=== PATIENT | female | born 1960 | race Hispanic/Latino ===

== ENCOUNTER 2024-07-09 12:50 | Emergency (ER) | payer BC ==
[~2024-07-09] VITALS: Ht 182.9 cm; Wt 149.7 kg
--- NOTE | 2024-07-09 13:26 | ERN ---
ED Note History of Present Illness Stated Complaint: CP,SOB Chief Complaint: Chest Wall Pain Time Seen by MD: 13:16 Dictation: 64-year-old female with a history of DM, asthma, sleep apnea presents to the ED for evaluation of chest pain onset this morning. Patient reports shortness a breath onset 1 day ago, but denies any other associated symptoms at this time. Patient reports she usually uses 2 L of oxygen at night as needed but states she was using 5 L at home today. Patient also mentioned she had an echo performed by Dr. Jacobsen, news agent a few weeks ago. Patient is taking beta blockers but states she did not take any today since she noticed her heart rate was low. Allergies: Coded Allergies: NSAIDS (Non-Steroidal Anti-Inflamma (Unverified Allergy, Unknown, 07/09/24) aspirin (Unverified Allergy, Unknown, 07/09/24) hydromorphone (Unverified Allergy, Unknown, 07/09/24) ketorolac (Unverified Allergy, Unknown, 07/09/24) Past Medical History Past Medical History: Diabetes-Type II, Hypertension Additional Past Medical Hx: CKD Surgical History: Unknown Review of System Dictation Constitutional: Negative for fever,chills, and weight loss Eyes: Negative for injury, pain,redness, and discharge ENT: Negative for injury,pain or swelling Cardiovascular: Positive for chest pain, negative for palpitations, and edema Respiratory: Positive for shortness of breath, negative for cough, and wheezing, Abdomen/GI: Negative for abdominal pain, nausea, vomiting, diarrhea, and constipation Back: Negative for injury and pain : Negative for injury, bleeding and discharge MS/Extremity: Negative for injury and deformity Skin: Negative for rash, and discoloration Neuro: Negative for headache, weakness, numbness, tingling, and seizure Psych: Negative for suicide ideation, homicidal ideation, and hallucinations Initial Vital Sign VS Vital Signs Date Time Temp Pulse Resp B/P (MAP) Pulse Ox O2 Delivery O2 Flow Rate FiO2 07/09/24 12:57 97.7 48 24 138/104 100 Room Air 0 07/09/24 13:18 21 Physical Exam Dictation General: awake, alert, patient appears ill, diaphoretic Head/Face: Normocephalic, atraumatic Eyes: PERRL, EOMI, vision at baseline ENT: oral cavity clear, TMs clear, no signs of infection Neck: Trachea midline, supple, no nuchal rigidity Cardiovascular: Tachycardic, irregular rhythm No MRGs, no JVD Respiratory: CTAB, no respiratory distress, No rales or wheezes Abdomen: Soft, non-tender, non-distended, normal bowel sounds, no guarding or rebound. Skin: Warm, dry, normal turgor, no rash MS/Extremity: Pulses equal, no cyanosis, neurovascular intact, FROM Neuro: COAx4, GCS 15, strength 5/5, CN 2-12 intact, normal cerebellar exam, normal gait, Psych: Normal behavior, mood, and affect normal Results (Laboratory/Radiology) Laboratory/Radiology Labs Reviewed?: Yes EKG Comment: EKG 07/09/2024 time 1:10 p.m. ventricular rate 108, atrial fibrillation, ventricular premature complex, incomplete left bundle branch block, LVH with secondary repolarization abnormality. No STEMI EKG 07/09/2024 time 1:42 p.m. ventricular rate 128, atrial fibrillation, ventricular tachycardia, nonsustained, incomplete left bundle branch block, LVH with secondary repolarization abnormality. No STEMI ED Course ED Course HEART Score Response (Comments) Value History: Low suspicion (0) 0 EKG: Repolarization changes 1 Age: 45-65yrs (+1) 1 Risk Factors: 1-2 risk factors (+1) 1 Initial Troponin: Normal limit (0) 0 HEART Score Risk: Low Risk for MACE (1-3) Total 3 Medical Decision Making MDM MDM: Differential diagnosis: New onset AFib with RVR, unsustained VT 1336- consult 1345- Dr. Yang, Cardiology consult 1410- Dr. Fernando consult accepts patient for admission Rationale: Tests considered and ordered secondary to shared decision making include: labs, ECG and radiology Risk of complication and/or morbidity or mortality of patient management: None Medications-Per medication reconciliation Need for hospitalization: Patient does meet criteria for hospitalization. Need for emergency major/minor surgery: No There are no social concerns with this patient. Patient's prior external medical records from other ER visits were reviewed by me as indicated. Prior testing and results from previous visits were reviewed. Prior tests were taken into account with medical decision making and resource utilization, independent historian/historians were used to obtain complete medical history. I independently interpreted the test that were performed, results were reviewed by me and considered findings on radiology if ordered. Medical management and examination interpretation discussions were had by me with other qualified healthcare professionals as indicated for the patient's care. 1338- Patient is stating she wants to leave 1604-after being admitted, patient was seen by hospitalist and Dr. Gaona at bedside. Patient was upset about admission due to her insurance not being accepted here, hospitalist team offered to organize transfer to [facility] where patient's insurance is accepted. Patient decided to leave AMA. Critical Care Note Critical Time: other (Total critical care time was 33 minutes. Excluding time for procedures. Management of critically ill patient with concern for acute decompensation. Management included interpretation of laboratory values and imaging, hemodynamics, time for consultation with consultants and admitting physician.) DX & DISP Disposition: Inpatient Decision to Admit Date: Jul 09, 2024 Decision to Admit Time: 14:14 Departure Impression: Primary Impression: Atrial fibrillation with RVR Additional Impression: unsustained VT Condition: Stable I have reviewed, & agreed with my scribe's, documentation. (Entered by Shemar Ronquillo, acting as a scribe for Dr. Cadena) I personally scribed for EILEEN CADENA MD ([facility] on 07/09/24 at 13:26. Electronically submitted by Shemar Ronquillo ([email or web address]). I personally scribed for EILEEN CADENA MD ([facility] on 07/09/24 at 13:33. Electronically submitted by Shemar Ronquillo ([email or web address]). I personally scribed for EILEEN CADENA MD ([facility] on 07/09/24 at 13:37. Electronically submitted by Shemar Ronquillo ([email or web address]). I personally scribed for EILEEN CADENA MD ([facility]) on 07/09/24 at 13:48. Electronically submitted by Shemar Ronquillo ([email or web address]). I personally scribed for EILEEN CADENA MD ([facility]) on 07/09/24 at 13:58. Electronically submitted by Shemar Ronquillo ([email or web address]). EILEEN CADENA MD Jul 09, 2024 13:26
[2024-07-09 13:42] LABS: BASOPHILS # (AUTO) 0.08 K/uL (0.00-0.20); BASOPHILS % (AUTO) 0.5 % (0.0-5.0); EOSINOPHILS # (AUTO) 0.08 K/uL (0.00-0.70); EOSINOPHILS % (AUTO) 0.5 % (0.0-8.0); HEMATOCRIT 46.3 % (36-48); LYMPHOCYTES # (AUTO) 3.6 K/uL (1.0-4.8); LYMPHOCYTES % (AUTO) 21.8 % (21.0-51.0); MEAN CORPUSCULAR HEMOGLOBIN 22.3 pg (27.0-33.0); MEAN CORPUSCULAR HGB CONC 30.9 g/dL (32.0-36.0); MEAN CORPUSCULAR VOLUME 72.2 fL (79-99); MONOCYTES # (AUTO) 0.9 K/uL (0.1-1.0); MONOCYTES % (AUTO) 5.7 % (3.0-13.0); NEUTROPHILS # (AUTO) 11.6 K/uL (1.8-7.7); NEUTROPHILS % (AUTO) 70.9 % (40.0-77.0); PLATELET COUNT (AUTO) 302 K/uL (130-400); RED BLOOD CELL COUNT(AUTO) 6.41 MIL/uL (4.00-5.50); RED CELL DISTRIBUTION WIDTH 26.5 % (11.0-15.5); WHITE BLOOD COUNT (AUTO) 16.3 K/uL (4.8-10.8)
[2024-07-09 13:48] LABS: INR 1.04 (0.85-1.15); PROTHROMBIN TIME 11.2 SEC (9.6-11.6)
[2024-07-09 13:49] LABS: PARTIAL THROMBOPLASTIN TIME 24.4 SEC (26.3-35.5)
[2024-07-09 13:50] LABS: CREATININE 1.5 mg/dL (0.5-1.0); POTASSIUM 3.4 mmol/L (3.5-5.1)
[2024-07-09 14:08] LABS: B-TYPE NATRIURETIC PEPTIDE 585 pg/mL (0-100); BILIRUBIN,DIRECT 0.1 mg/dL (0.0-0.3); BILIRUBIN,TOTAL 0.4 mg/dL (0.2-1.0); TOTAL PROTEIN, SERUM 7.2 g/dL (6.0-8.3)
[2024-07-09] MEDS: 0.9% NACL 250ML 250 ML IV ONE ×2 (14:13→15:34)
[2024-07-09] MEDS: metoPROLOL tartRATE 1 MG/ML 5ML VIAL IV ONE (14:13)
--- NOTE | 2024-07-09 14:30 | NUR ---
I WAS INFORMED PT WAS UPSET AND WAS REFUSING MEDICATIONS. UPON ENTERING HER ED BED 15 TO INFORM HER THE ED MD DORAN ORDERED METOPROLOL 5MG IV. SHE REFUSED SAYING SHE WANTED HER DR "DR PICKETT" TO COME HERE AND SEE HER. I EXPLAINED WHO I WAS AND WHAT THE PROCESS WAS IN THE EMERGENCY DEPARTMENT. PT HR 120-150'S. PT STATED SHE WAS TOLD BY DR MCKEE STAFF THAT IF SHE CALLED FROM THE ER, HE WOULD COME. PT CURRENTLY REFUSED MEDICATIONS AT THIS TIME DESPITE GIVING REASONS TO WHY. I DID INFORM MY SCREEN PRINTING LOADER UNLOADER AND DIRECTOR OF THE SITUATION. ALONG W/THE SITUATION FROM HER HAVING CURSED AT OUR COLLECTION ADMINISTRATORWOODY RODRIGUEZ.
[2024-07-09] MEDS: AMIOdarone 900MG VIAL 150 MG in DEXTROSE 5%-WATER 100 ML IV SCH (14:48)
[2024-07-09] MEDS: AMIOdarone 900MG VIAL 360 MG in DEXTROSE 5%-WATER 200 ML IV SCH (14:49)
[2024-07-09] MEDS: DEXTROSE 50%-WATER 50 ML DISP.SYRIN IV ONE (14:50)
--- NOTE | 2024-07-09 15:02 | HMCIMG ---
CHEST 1VW REASON: CHEST PAIN COMPARISON: None. FINDINGS: Single view of the chest was obtained. Lungs are clear. Heart size is normal. There is no pulmonary vascular congestion. Mediastinum and bony thorax appear unremarkable. IMPRESSION: 1. Normal single view chest x-ray.
[2024-07-09] MEDS ORDERED: MAGNESIUM 2GM PREMIX 50ML 50 ML IV PRN (15:30)
[2024-07-09] MEDS ORDERED: PoTASSium chloRIDE 20MEQ ER 20 MEQ ERTAB PO ONE (15:30)
[2024-07-09] MEDS: 0.9%NACL 1000ML 1,000 ML IV SCH (15:34)
[2024-07-09] MEDS: AMIOdarone 900MG VIAL 540 MG in DEXTROSE 5%-WATER 300 ML IV ONE (15:34)
[2024-07-09 15:36] VITALS: BP 92/56; PULSE 142; RESP 20; TEMP 98.4; O2SAT 100
--- NOTE | 2024-07-09 15:46 | CONS ---
CARDIOLOGY CONSULTATION She is in the Emergency Room. REASON FOR REFERRAL: Atrial fibrillation. PRIMARY LENS INSERTER: Dr. Jacobsen who was out of town. I spoke with Dr. Jacobsen. The patient also spoke to Dr. Jacobsen by telephone. HISTORY OF PRESENT ILLNESS: This 64-year-old lady came to the Emergency Room because of chest wall pain, shortness of breath. Her electrocardiogram showed atrial fibrillation with a mildly rapid ventricular response. Occasional PVCs. PAST CARDIAC HISTORY: The patient is being evaluated by Dr. Jacobsen for arrhythmias. She denies previous atrial fibrillation. An echocardiogram performed in [place], [place] is reportedly showing ejection fraction 45%. PAST MEDICAL HISTORY: Includes diabetes. The patient states that she denies hypertension. ALLERGIES: NSAIDS INCLUDING ASPIRIN, HYDROMORPHONE, KETOROLAC. PHYSICAL EXAMINATION: GENERAL: The patient is a well-developed, well-nourished, but obese lady, in no acute distress. VITAL SIGNS: Blood pressure 120/70, heart rate 116-130. Most recent noninvasive blood pressure by blood pressure cuff on her wrist 84/60. Weight 149.7 kg. LUNGS: The lungs are clear bilaterally. NECK: There is no JVD or HJR. Carotids are normal. HEART: S1 is soft and irregularly irregular, S2 single. There is No S3 or S4. There are no murmurs, no pericardial friction rubs. ABDOMEN: The abdomen is nondistended, but obese. Bowel sounds positive. No obvious bruits. EXTREMITIES: There is no edema. The popliteal pulses are intact. LABORATORY DATA: Hemoglobin 14.3, hematocrit 46.3, potassium 3.4, magnesium 1.9, creatinine 1.5, BUN 29 with an estimated glomerular filtration rate of 39. Troponin less than 0.05 x 2. The laboratory data was discussed with the patient. IMPRESSION: This patient does have atrial fibrillation with a rapid ventricular response. Her [id number] score is 3 if hypertension is included, 2 if hypertension is removed. Anticoagulation for stroke prevention was discussed with the patient. The patient is currently being treated with intravenous amiodarone. The potassium and magnesium will be replaced. PLAN: The patient will receive intravenous fluids. The amiodarone can be switched to IV Cardizem. The patient should have follow with her primary heel room supervisor. TID: [id number] RECEIPT: [id number]
--- NOTE | 2024-07-09 16:00 | NUR ---
PT REFUSED TO BE TRANSFERRED TO [facility]IA EMS DESPITE HER VITAL SIGNS AND CURRENT CONDITIONS. IT WAS EXPLAINED TO HER TO WHY IT WAS IN THE PROCESS. SHE STATED SHE DID NOT WANT TO PAY $3000 DLS FOR AN EMS RIDE WHEN SHE CAN JUST GO OVER HERSELF. MYSELF, KATHERYN SALDAÑA AND YESENIA EASLEY RN ATTEMPTED TO EXLPAIN TO HER, BUT SHE STATED SHE WAS NOT GOING TO GO BY EMS. DR NASH WAS JUST RECENTLY AT BEDSIDE AND PT WAS REFUSING CERTAIN TREATMENTS OFFERED BY DR NASH TO TREAT HER AFIB/RVR IRREGULAR HEART RHYTHM.
--- NOTE | 2024-07-09 16:04 | NUR ---
PT UPSET ABOUT ADMISSION DUE TO INSURANCE BEING OUT OF NETWORK HERE. DR VENCES OF HOSPITALIST TEAM OFFER TO ORGANIZE FOR [place] [facility] [place]. PT STILL UPSET BECAUSE SHE "DOESNT WANT TO PAY THE BILL FOR THE AMBULANCE WHEN I DRIVE MYSELF THERE.". PT SPOKE TO DR VENCES, DR RAY, NURSE YESENIA, NURSE CLINT, NURSE KATHERYN. PT STILL ADAMENT ABOUT TAKING HERSELF TO [facility] [place]BULANCE BILL. 18G IV REMOVED FROM RIGHT AC AND PT LEFT AND REFUSED TO SIGN AMA FORM.
--- NOTE | 2024-07-09 16:15 | NUR ---
[facility] NOTIFIED ABOUT PT POSSIBLY HEADING THAT WAY PER PT REQUEST.
--- NOTE | 2024-07-10 05:42 | EKG ---
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
--- NOTE | 2024-07-11 06:29 | EKG ---
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
== END 2024-07-09 16:23 | disposition left against medical advice (07) ==
LOC: EDH 12:50
DX: I48.20 Chronic atrial fibrillation, unspecified (principal); I47.20 Ventricular tachycardia, unspecified; I12.9 Hypertensive chronic kidney disease with stage 1 through stage 4 chronic kidney disease, or unspecified chronic kidney disease; E11.22 Type 2 diabetes mellitus with diabetic chronic kidney disease; N18.9 Chronic kidney disease, unspecified; Z88.5 Allergy status to narcotic agent; Z88.6 Allergy status to analgesic agent
CPT/HCPCS: 99291; 96365; 96375; 96361; 82550; 80076; 83735; 84484 ×2; 80048; 83880; 85025; 85378; 85610; 85730; 82948 ×2; 36415; 71045; 93005 ×2; J3490; J7070; J7060 ×3; J0282 ×3; J7050